=== PATIENT | female | born 1960 | race African-American/Black ===

== ENCOUNTER 2016-10-25 14:36 | Emergency (ER) | payer MEDICARE, MEDICAID ==
[~2016-10-25] VITALS: Ht 160 cm; Wt 90.7 kg
[~2016-10-25 14:36] MED LIST: PERCOCET 5-3251 EACH ORAL; VALIUM5 MG ORAL; ZOFRAN ODT4 MG ORAL
--- NOTE | 2016-10-25 14:43 | Emergency Room Report ---
History of Present Illness General Chief Complaint: Headache Source: Patient Present Illness HPI The patient presents with severe neck pain and headache. This started this afternoon. She was rushed and didn't eat anything. She's had chronic pain in her neck and has intermittent problems with this for a long time. This is one of the worst episodes. The VALLADARES is frontal and also the pain is due to neck muscle spasms which are severe. She denies any recent trauma or fever. There is no vomiting. She took neurontin and tramadol as this started. She tried to go to work but the pain was sever when she was driving and she pulled over and called 911. No rashes, change in vision. No blood thinners, localized weakness, numbness, incontinence, oncologic problems. The initial injury was 2008 at work. She has had physical therapy at [place], but none recently. No dysuria, change in bowel habits. Stressed and somewhat depressed. Allergies: Coded Allergies: MORPHINE (Unverified Allergy, Unknown, 09/07/14) Patient History Past Medical History: see triage record Social History Narrative at home Reviewed Nursing Documentation: PMH: Agreed, PSxH: Agreed Nursing Documentation-PMH Past Medical History: No History, Except For Hx Cardiac Problems: Yes Hx Hypertension: Yes Hx Pacemaker: No - MIGRANES Hx Diabetes: Yes Hx Neurological Problems: Yes - cervical radiculopathy Review of Systems All Other Systems: negative except mentioned in HPI Physical Exam Vital Signs Date Time Temp Pulse Resp B/P Pulse Ox O2 Delivery O2 Flow Rate FiO2 10/25/16 14:30 98.4 80 22 137/90 100 Room Air Sp02 EP Interpretation: reviewed, normal General Appearance: GCS 15, mild distress Head: normocephalic, atraumatic Eyes: bilateral eye PERRL, bilateral eye normal inspection ENT: moist mucus membranes Neck: no bony tend, limited range of motion - due to muscle spasms Respiratory: lungs clear, normal breath sounds Cardiovascular #1: regular rate, rhythm Cardiovascular #2: 2+ radial (R) Gastrointestinal: normal inspection, normal bowel sounds, non tender, no mass, non-distended Musculoskeletal: back normal, gait/station normal, normal range of motion Neurologic: alert, oriented x3, puddler helper III-XII nml as tested, motor strength/tone normal, DTRs symmetric, sensory intact, speech normal Psychiatric: mood/affect normal - but in pain Skin: normal inspection, warm/dry Medical Decision Making Diagnostic Impression: Primary Impression: Headache Qualified Codes: G44.209 - Tension-type headache, unspecified, not intractable Additional Impression: Neck muscle spasm ER Course Patient presents with exacerbation of neck pain and headache. Ddx: viral syndrome, tension VALLADARES, migraine, neck spasms, torticollis amongst others. No red flag signs or symptoms. Emergent treatment with analgesics along with reglan and benadryl. No imaging studies indicated. Significant improvement with treatment. The patient was discussed with Jose with an attempt to get set up for physical therapy. Patient stable for outpatient observation and treatment. Note: urine returned after patient departed. She had denied dysuria. Laboratory Tests Test 10/25/16 14:39 Urine Color Pale yellow Urine Appearance Clear Urine pH 6.5 (4.5-8.0) Urine Specific [place] 1.010 (1.005-1.035) Urine Protein 2+ (NEGATIVE) H Urine Glucose (UA) Negative (NEGATIVE) Urine Ketones 4+ (NEGATIVE) H Urine Occult Blood 4+ (NEGATIVE) H Urine Nitrite Negative (NEGATIVE) Urine Bilirubin Negative (NEGATIVE) Urine Urobilinogen Normal MG/DL (0.0-1.0) Urine Leukocyte Esterase 3+ (NEGATIVE) H Urine RBC Tntc /HPF (0 - 2) H Urine WBC Tntc /HPF (0 - 2) H Urine Squamous Epithelial Cells Many /LPF (NONE/OCC) H Urine Bacteria Many /HPF (NONE) H Urine Trichomonas Few /HPF (NONE) H Urine Opiates Screen Negative (NEGATIVE) Urine Barbiturates Screen Negative (NEGATIVE) Phencyclidine (PCP) Screen Negative (NEGATIVE) Urine Amphetamines Screen Negative (NEGATIVE) Urine Benzodiazepines Screen Negative (NEGATIVE) Urine Cocaine Screen Negative (NEGATIVE) Urine Marijuana (THC) Screen Negative (NEGATIVE) EKG Diagnostic Results Rate: normal Rhythm: NSR ST Segments: no acute changes Rhythm Strip Diag. Results EP Interpretation: yes Rhythm: NSR, no PVC's, no ectopy Last Vital Signs Date Time Temp Pulse Resp B/P Pulse Ox O2 Delivery O2 Flow Rate FiO2 10/25/16 18:06 98.4 84 24 146/76 100 Room Air Status: improved Disposition: HOME, SELF-CARE Condition: Improved Carlos Eduardo Garces M.D. Oct 25, 2016 14:43
[2016-10-25] MEDS ORDERED: Metoclopramide 10mg/2ml Inj IVP ONE (14:45)
[2016-10-25] MEDS ORDERED: DiphenhydrAMINE 50mg/ml Inj IVP ONE (14:45)
[2016-10-25 14:49] VITALS: BP 137/90
[2016-10-25] MEDS ORDERED: Ketorolac 30mg Inj IV ONE (16:30)
[2016-10-25 16:41] VITALS: BP 142/77
[2016-10-25 16:46] LABS: APPEARANCE,URINE CLEAR; KETONES,URINE 4+ (NEGATIVE); LEUKOCYTE ESTERASE ,URINE 3+ (NEGATIVE); NITRITE,URINE NEGATIVE (NEGATIVE); PH,URINE 6.5 (4.5-8.0); PROTEIN,URINE 2+ (NEGATIVE); UROBILINOGEN,URINE NORMAL MG/DL (0.0-1.0)
[2016-10-25 17:27] LABS: BACTERIA,URINE MANY /HPF; RBC,URINE TNTC /HPF (0 - 2); SQUAMOUS EPITHELIAL CELL,UR MANY /LPF (NONE/OCC); TRICHOMONAS,URINE FEW /HPF; WBC,URINE TNTC /HPF (0 - 2)
[2016-10-25 18:05] VITALS: BP 146/76
[2016-10-25 18:06] VITALS: BP 146/76
--- NOTE | 2016-10-26 13:50 | Cardiology Report ---
APPROVED REPORT EKG Measurement Heart [id number] MD [id number] Normal sinus rhythm Minimal voltage criteria for LVH, may be normal variant Borderline ECG
== END 2016-10-25 18:07 | disposition home or self-care (01) ==
LOC: EDBD 14:36 → EMR 18:02
DX: R51 Headache (principal); M62.838 Other muscle spasm; M54.2 Cervicalgia; I10 Essential (primary) hypertension; E11.9 Type 2 diabetes mellitus without complications; G89.29 Other chronic pain
CPT/HCPCS: 80300; 81003; 87086; 93005; 96374; 96375; 99283; J1200; J1885; J2765